=== PATIENT | male | born 1945 | race Caucasian/White ===

== ENCOUNTER → 2016-09-03 | Outpatient (CLI) | payer OTHER ==
[~2016-09-03] MED LIST: GADOBUTROL 10 ML VIAL IVP ONE
[2016-09-03 10:47] LABS: CREATININE 0.9 mg/dL (0.7-1.3); GLOMERULAR FILTRATION RATE > 60
== END ==
LOC: FIMAGING 09:58
PROVIDERS: ATTEND Otolaryngology
DX: G93.89 Other specified disorders of brain (principal); H91.8X2 Other specified hearing loss, left ear
CPT/HCPCS: 70553; A9585

== ENCOUNTER 2018-05-31 05:57 | Observation (INO) | payer OTHER ==
--- NOTE | 2018-05-28 21:59 | GHP ---
CURRENT COMPLAINT: Left knee pain. HISTORY OF PRESENT ILLNESS: The patient is a 72-year-old male with pain in the anterior portion of h is knee. Despite multiple conservative measures, he wishes to have surgery in order to resolve the p roblem. ALLERGIES: He lists no drug allergies. CURRENT MEDICATIONS: Include simvastatin, tamsulosin. PAST MEDICAL HISTORY: Prior medical problems include high cholesterol and arthritis. PAST SURGICAL HISTORY: Prior surgeries includes orthopedic surgery x3. SOCIAL HISTORY: He has never been a smoker. He is a social drinker. PHYSICAL EXAMINATION: HEENT: The patient's pupils equal, round, and reactive to light. CHEST: Jame ar to auscultation. HEART: Regular rate and rhythm. ABDOMEN: Soft and nontender. EXTREMITIES: H e has palpable spurring over the patellofemoral joint with positive grind sign at the patellofemoral joint. IMAGING DATA: Radiological studies reveal osteoarthritic changes isolated to the patellofemoral join t. PLAN: To take him to the operating room to undergo a patellofemoral replacement. /[id number]/MODL
[2018-05-31] MEDS ORDERED: TRANEXAMIC ACID 3,000 MG in NS (SYRINGE) 50 ML IRR ONE (06:00)
[2018-05-31] MEDS ORDERED: ROPIVACAINE 0.2% 80 MG, EPINEPHrine 0.2 MG, KETOROLAC TROMETHAMINE 30 MG, morphINE 10 M... IU ONE (06:00)
[2018-05-31] MEDS ORDERED: LIDOCAINE 1% 2 ML INJ ID PRN (06:18)
[2018-05-31] MEDS ORDERED: ACETAMINOPHEN 500 MG TAB PO ONE (06:18)
[2018-05-31] MEDS ORDERED: ceFAZolin 2 GM/DEXTROSE 100 ML IV ONE (06:18)
[2018-05-31] MEDS ORDERED: LR 1,000 ML IV ONE (06:18)
[2018-05-31] MEDS ORDERED: PREGABALIN 150 MG CAP PO ONE (06:18)
[2018-05-31] MEDS ORDERED: PREGABALIN 150 MG CAP ONE (06:25)
[2018-05-31] MEDS ORDERED: ACETAMINOPHEN 500 MG TAB ONE (06:26)
[2018-05-31] MEDS ORDERED: CEFAZOLIN 2 GM/DEXTROSE/100 ML BAG IV ONE (06:26)
--- NOTE | 2018-05-31 06:45 | PDANEPAE ---
ANE History of Present Illness Knee OA ANE Past Medical History - Cardiovascular History Hx Hypertension: No Hx Arrhythmias: No Hx Chest Pain: No Hx Coronary Artery / Peripheral Vascular Disease: No Hx CHF / Valvular Disease: No Hx Palpitations: No Cardiovascular History Comment: HIGH NORMAL BP - NO MEDS. HYPERLIPIDEMIA - Pulmonary History Hx COPD: No Hx Asthma/Reactive Airway Disease: No Hx Recent Upper Respiratory Infection: No Hx Oxygen in Use at Home: No Hx Sleep Apnea: No Sleep Apnea Screening Result - Last Documented: Negative - Neurologic History Hx Cerebrovascular Accident: No Hx Seizures: No Hx Dementia: No - Endocrine History Hx Diabetes: No - Renal History Hx Renal Disorders: No - Liver History Hx Hepatic Disorders: No - Neurological & Psychiatric Hx Hx Neurological and Psychiatric Disorders: No - Cancer History Hx Cancer: No - Congenital Disorder History Hx Congenital Disorders: No - GI History Hx Gastrointestinal Disorders: No - Other Health History Other Health History: NEG - Chronic Pain History Chronic Pain: Yes (VICTOR HUGO KNEES) - Surgical History Prior Surgeries: R KNEE SCOPES X3 ANE Review of Systems Review of Systems: - Exercise capacity METS (RN): 5 METS ANE Patient History - Allergies Allergies/Adverse Reactions: No Known Allergies Allergy (Unverified 05/15/18 11:10) - Home Medications Home medications: home medication list seen and reviewed Home Medications: Aleve 05/15/18 [Last Taken 05/25/18] Aspirin 81mg (*) 05/15/18 [Last Taken 05/21/18] Flomax 05/15/18 [Last Taken 05/29/18] Simvastatin 05/15/18 [Last Taken 05/30/18] - NPO status NPO Status: no food or drink >8 hours NPO Since - Liquids (Date): 05/31/18 NPO Since - Liquids (Time): 06:30 NPO Since - Solids (Date): 05/30/18 NPO Since - Solids (Time): 22:00 - Anes Hx Anes Hx: no prior problems (No prior RA) - Smoking Hx Smoking Status: Never smoked - Family Anes Hx Family Hx Anesthesia Complications: NEG ANE Labs/Vital Signs - Vital Signs Blood Pressure: 129/82 Heart Rate: 55 Respiratory Rate: 16 O2 Sat (%): 95 Height: 175.26 cm Weight: 80.286 kg ANE Physical Exam - Airway Neck exam: FROM Mallampati Score: Class 2 Mouth exam: normal dental/mouth exam - Pulmonary Pulmonary: no respiratory distress - Cardiovascular Cardiovascular: regular rate and rhythym - ASA Status ASA Status: II ANE Anesthesia Plan Anesthesia Plan: MAC, spinal Regional Anesthesia: adductor canal FNB (To be done in [facility])
[2018-05-31] MEDS ORDERED: THROMBIN (BOVINE) 5,000 UNIT VIAL TP ONE (06:49)
[2018-05-31] MEDS ORDERED: BUPIVACAINE/EPI 0.5% 30 ML SDV ONE (06:49)
[2018-05-31] MEDS ORDERED: CALCIUM CHLORIDE 1 GM/10 ML INJ ONE (06:50)
[2018-05-31] MEDS ORDERED: POLYMYXIN B SULFATE 500,000 UNIT/10 ML SYR IRR ONE (06:51)
[2018-05-31] MEDS ORDERED: BACITRACIN 50,000 UNITS/10 ML SYR IRR ONE (06:51)
[2018-05-31] MEDS ORDERED: MIDAZOLAM 2 MG/2 ML VIAL IVP ONE (06:57)
[2018-05-31] MEDS ORDERED: BUPIVACAINE/DEXTROSE 7.5MG/ML 2 ML SPINAL AMP SP ONE (07:06)
[2018-05-31] MEDS ORDERED: PROPOFOL/EMULSION 500 MG/50 ML BOTTLE IV ONE ×2 (07:09→08:15)
[2018-05-31] MEDS ORDERED: LIDOCAINE 2% 2 ML INJ ONE (07:15)
--- NOTE | 2018-05-31 07:22 | PDHPUP ---
History & Physical Update H&P update statement: This history and physical update is based on an assessment of the patient which was completed after admission or registration (within 24 hours), but prior to the surgery/procedure. H&P update: H&P reviewed & patient examined, no change in patient's condition since H&P completed
[2018-05-31] MEDS ORDERED: TRANEXAMIC ACID 3,000 MG/50 ML BAG IRR ONE (07:55)
[2018-05-31] MEDS ORDERED: ROPIVACAINE HCL 150 MG/30 ML INJ ONE (08:39)
[2018-05-31] MEDS ORDERED: ONDANSETRON 4 MG/2 ML VIAL IVP PRN (08:49)
[2018-05-31] MEDS ORDERED: fentaNYL 100 MCG/2 ML INJ IVP PRN (08:49)
[2018-05-31] MEDS ORDERED: HYDROmorphONE/DILAUDID 2 MG/ML INJ IVP PRN (08:49)
[2018-05-31] MEDS ORDERED: NALOXONE HCL 0.4 MG/ML INJ IVP PRN (08:49)
[2018-05-31] MEDS ORDERED: diphenhydrAMINE 25 MG CAP PO PRN (08:53)
[2018-05-31] MEDS ORDERED: BISACODYL 10 MG SUPP PR PRN (08:53)
[2018-05-31] MEDS ORDERED: CYCLOBENZAPRINE 10 MG TAB PO PRN (08:53)
[2018-05-31] MEDS ORDERED: PROMETHAZINE HCL 25 MG/ML INJ IVP PRN (08:53)
[2018-05-31] MEDS ORDERED: TEMAZEPAM 15 MG CAP PO PRN (08:53)
[2018-05-31] MEDS ORDERED: oxyCODONE IR 5 MG TAB PO PRN (08:53)
[2018-05-31] MEDS ORDERED: METOCLOPRAMIDE 10 MG/2 ML VIAL IVP PRN (08:53)
[2018-05-31] MEDS ORDERED: POLYETHYLENE GLYCOL 3350 17 GM PKT PO PRN (08:53)
[2018-05-31] MEDS ORDERED: ONDANSETRON DISINTEGRATING 4 MG TAB PO PRN (08:53)
[2018-05-31] MEDS ORDERED: MAGNESIUM HYDROXIDE 30 ML UDCUP PO PRN (08:53)
[2018-05-31] MEDS ORDERED: LACTULOSE 20 GM/30 ML UDCUP PO PRN (08:53)
[2018-05-31] MEDS ORDERED: PROMETHAZINE HCL 25 MG SUPPR PR PRN (08:53)
[2018-05-31] MEDS ORDERED: DIPHENOXYLATE/ATROPINE LOMOTIL 1 TAB PO PRN (08:53)
[2018-05-31] MEDS ORDERED: TAPENTADOL HCL 50 MG TAB PO PRN (08:53)
--- NOTE | 2018-05-31 08:53 | POSTOPPROG ---
Post Op Note Date of Operation: 05/31/18 Surgeon: Verenice Peralta Salon Receptionist: eliazar Anesthesia: Epidural, IV Sedation Pre-op Diagnosis: l knee oa Procedure: l pfr Inf/Abcess present in the surg proc area at time of surgery?: No Depth: Deep Incisional (Fascial) EBL: 100-500
[2018-05-31] MEDS ORDERED: LR 1,000 ML IV SCH (09:00)
--- NOTE | 2018-05-31 09:14 | POSTANESTH ---
Post Anesthetic Evaluation Cardiovascular Status: Similar to Pre-Op Cond Respiratory Status: Similar to Pre-op Cond. Level of Consciousness/Mental Status: Alert and Oriented, Mildly Sleepy, Arousable Pain Control: Adequate, Prn Tx Ordered Nausea/Vomiting Control: Adequate, Prn Tx Ordered Complications Possibly Related to Anesthesia: None Noted (AC block done in PACU. No complications noted.)
--- NOTE | 2018-05-31 10:09 | GOP ---
DATE OF OPERATION: 05/31/2018 SURGEON: Verenice Peralta MD KETTLE SKIMMER: Donna To, Certified P.A., whose presence was medically necessary. ANESTHESIA: Epidural plus IV sedation. PREOPERATIVE DIAGNOSIS: Left patellofemoral arthritis. POSTOPERATIVE DIAGNOSIS: Left patellofemoral arthritis. PROCEDURE PERFORMED: Left patellofemoral joint replacement. FINDINGS: INDICATIONS: This is a 72-year-old male who has been very active but complaining of anterior knee pa in for several months. He has undergone several conservative management treatment modalities without affect. He wishes to have surgery in order to resolve the problem. DESCRIPTION OF PROCEDURE: The patient brought to the operating room after the left side had been tayler ntified as the correct side by the patient and the physician once in the operating room. He was give n epidural nerve block as well as IV sedation. He then had a tourniquet placed around the upper port ion of the left thigh with left lower extremity then sterilely prepped and draped in usual fashion us ing GSI solution. Once prepped and draped, limb was exsanguinated, tourniquet inflated to 250 mmHg. Incision was made on the anterior portion of the knee starting at the tibial tuberosity and extendin g approximately 6 cm superior to the patella. Sharp dissection carried down through the skin and sub cutaneous layers. Bleeding was controlled using electrocautery. A medial parapatellar incision was made through the extensor mechanism and the patella brought to the side. He was noted to have severe [id number] osteoarthritic changes at the patella and the trochlea, but otherwise the rest of the k nee was relatively spared. Therefore, the knee was brought to full extension. The patella was then everted, held in place with towel clamps. The patella was measured to be 22 mm in thickness. Oscill ating saw was used to remove the posterior portion of the patella, leaving 14 mm of bone. Multiple t rials were placed on the cut surface of the bone. Noted that a 32 mm button fit best. Therefore, regan g holes were drilled for a 32 mm button. Patella was brought to the side but again not everted, and knee was brought to full flexion. A drill hole was made 1 cm anterior to the intercondylar notch wit h an intramedullary guide placed within the femur. The axis of the cutting guide was set to match up with Whitesides line. Once pinned into place, a finger feel was placed on the superior portion of t he guide placed on the anterior portion of the femur in order to guide the femoral cut. Once put int o place pins were put into the cutting guide. Oscillating saw was used to cut the anterior portion o f the femur. Once achieving a smooth cut sizing guide was put into place noted a size 5 seemed to fi t best. Therefore, a size 5 cutting guide was pinned into place and a router was then used to remove bone from the trochlea. Once achieving a good cut across the trochlea a trial was put into place, n oted to fit securely and lug holes were drilled for the femoral component. A trial was put into plac e and noted to fit securely. The trial was removed. All cut surfaces of bone were then thoroughly i rrigated with antibiotic solution using pulsatile lavage while cement was being mixed. Once cement w as doughy, was placed on the trochlea and anterior portion of the femur with a size 5 Marcos femoral patellofemoral replacement component, put into place and excess cement removed using Prather elevators. Cement was then placed on the cut surface of the patella with a 32 mm patellar button put into plac e with excess cement removed using Prather elevator. Before cement hardened, a joint cocktail was inje cted into the joint along the periosteum associated with the femur and the patella as well as the ext ensor mechanism and tranexamic acid were irrigated through the wound. Once cement had hardened, the clamp was removed from the patella. The knee was brought through range of motion, noted to have no s ubluxation of the patella relative to the trochlea. The wound was again thoroughly irrigated with an tibiotic solution, it was then closed in layers to include 0 Vicryl suture in [id number] type st itch for the extensor mechanism, with plasma gel placed intra-articularly. 0 Vicryl and 2-0 Vicryl s uture used for the subcutaneous layer with plasma gel placed external to the extensor mechanism, and a 4-0 V-lock suture in a running subcuticular stitch used for the skin. 30 cc of Marcaine was infuse d around the skin and the wound was then dressed with Steri-Strips, Xeroform, 4 x 4, wrapped in Kerli x. Leg was completely undraped in the operating room, tourniquet removed from the thigh, and an Ian wrap placed around the knee. The patient was then transferred onto a stretcher and sent to recovery room in good condition. 23-Hour Observation Operation TOURNIQUET TIME: 52 minutes. /[id number]/MODL
[2018-05-31] MEDS ORDERED: ACETAMINOPHEN 325 MG TAB ONE (11:09)
[2018-05-31] MEDS: ACETAMINOPHEN 325 MG TAB PO SCH ×3 (11:10→23:34)
[2018-05-31] MEDS: SENNOSIDES/DOCUSATE SODIUM TAB PO SCH ×2 (12:44→22:31)
[2018-05-31] MEDS ORDERED: KETOROLAC 15 MG/1 ML SDV ONE (12:46)
[2018-05-31] MEDS ORDERED: traMADol 50 MG TAB ONE (12:46)
[2018-05-31] MEDS: KETOROLAC 15 MG/1 ML SDV IVP SCH ×3 (12:48→23:33)
[2018-05-31] MEDS: traMADol 50 MG TAB PO SCH ×3 (12:51→23:34)
[2018-05-31] MEDS: ceFAZolin 2 GM/DEXTROSE 100 ML IV SCH ×2 (13:24→22:34)
[2018-05-31] MEDS: FAMOTIDINE 20 MG TAB PO SCH (22:32)
[2018-06-01] MEDS: KETOROLAC 15 MG/1 ML SDV IVP SCH (05:39)
[2018-06-01] MEDS: traMADol 50 MG TAB PO SCH ×2 (05:39→11:05)
[2018-06-01] MEDS: ACETAMINOPHEN 325 MG TAB PO SCH ×2 (05:57→11:07)
[2018-06-01] MEDS ORDERED: traMADol 50 MG TAB PO PRN (08:10)
[2018-06-01] MEDS ORDERED: RIVAROXABAN 10 MG TAB PO SCH ×2 (09:00)
[2018-06-01] MEDS: FAMOTIDINE 20 MG TAB PO SCH (09:17)
[2018-06-01] MEDS: SENNOSIDES/DOCUSATE SODIUM TAB PO SCH (09:17)
--- NOTE | 2018-06-01 11:37 | ASMTCMCOM ---
CM Note CM Note Notes: Met with patient and . Patient plans on following-up with Outpatient Therapy in a week. He declines the need for HC at this time. All DME has been purchased. Therapy has cleared for home. CM available should needs arise. Plan: Home with family support. Date Signed: 06/01/2018 11:37 AM Electronically Signed By:Rama Cee RN
--- NOTE | 2018-06-01 11:38 | ASMTLACE ---
LACE Length of stay for Answers: 1 day current admission Acuity / Level of Answers: No Care: Did the patient have an inpatient admission? Comorbidities - select Answers: Opioid dependence all that apply / Chronic pain Other Notes: HTN; HLD # of Emergency department Answers: 0 visits in the last 6 months Score: 6 Date Signed: 06/01/2018 11:37 AM Electronically Signed By:Rama Cee RN
[2018-06-01 11:54] VITALS: BP 109/87
[2018-06-01] MEDS ORDERED: TAMSULOSIN HCL 0.4 MG CAP PO SCH (21:00)
[2018-06-01] MEDS ORDERED: PRAVASTATIN SODIUM 10 MG TAB PO SCH (21:00)
== END 2018-06-01 12:26 | disposition home or self-care (01) ==
LOC: FSGY 05:57 → F3N 08:53
PROVIDERS: ADMIT Orthopaedic Surgery; ATTEND Orthopaedic Surgery
PROC: 0SRD0N9 Replacement of Left Knee Joint with Patellofemoral Synthetic Substitute, Cemented, Open Approach (ICD-10-PCS; principal; 2018-05-31 07:15)
DX: M17.12 Unilateral primary osteoarthritis, left knee (principal); E78.5 Hyperlipidemia, unspecified
CPT/HCPCS: 27446; 73560; 88311; 97161; 97165; C1713; C1776; G8978; G8979; G8980; G8987; G8988; G8989; J0171; J0690; J1885; J2250; J2270; J2704; J2795